=== PATIENT | male | born 1965 | race Two or more races ===

== ENCOUNTER 2024-01-13 21:53 | Emergency (ER) | payer SELFPAY ==
--- NOTE | 2024-01-13 22:12 | ED Physician Documentation ---
History of Present Illness - Stated complaint Stated Complaint: FEVER - Chief complaint Chief Complaint: Fever - History obtained from History obtained from: Patient, Family - Additonal information Additional information: 58-year-old gentleman with history of type 2 diabetes, coronary disease, and hypertension is visiting from [place]. For the last 2 nights he has had urinary frequency and dysuria as well as shaking chills and fever up to 104. He has no abdominal or flank pain. No runny nose or cough. PD PAST MEDICAL HISTORY - Present Medications Home Medications: Ambulatory Orders Medication Instructions Recorded Confirmed Ciprofloxacin HCl [Cipro] 500 mg PO BID #20 tablet 01/13/24 - Allergies Allergies/Adverse Reactions: Allergies Allergy/AdvReac Type Severity Reaction Status Date / Time NSAIDS (Non-Steroidal AdvReac Unknown Verified 01/13/24 22:10 Anti-Inflamma quinapril AdvReac Unknown Verified 01/13/24 22:11 PD ED PE NORMAL - Vitals Vital signs reviewed: Yes (Febrile and tachycardic) - General General: Alert and oriented X 3, No acute distress - HEENT HEENT: PERRL, EOMI - Neck Neck: Supple, no meningeal sign, No bony TTP - Cardiac Cardiac: RRR, No murmur - Respiratory Respiratory: No respiratory distress, Clear bilaterally - Abdomen Abdomen: Soft, Non tender - Back Back: No CVA TTP - Derm Derm: Normal color, Warm and dry - Neuro Neuro: Alert and oriented X 3, Normal speech Results - Vitals Vitals: Vital Signs - 24 hr 01/13/24 01/13/24 01/13/24 21:58 23:33 23:40 Temperature 38.9 C H 38.2 C H 38.2 C H Heart Rate 124 H 108 H Respiratory 19 20 Rate Blood Pressure 143/79 H 151/83 H O2 Saturation 93 98 01/13/24 01/14/24 23:52 00:35 Temperature 100.8 C H 37.8 C Heart Rate 103 H 97 Respiratory 18 18 Rate Blood Pressure 131/76 H 131/78 H O2 Saturation 99 99 Oxygen O2 Source Room air - Labs Labs: Laboratory Tests 01/13/24 01/13/24 01/13/24 22:00 22:21 22:21 WBC 11.0 H RBC 4.80 Hgb 13.4 L Hct 42.1 MCV 87.7 MCH 27.9 MCHC 31.8 L RDW 12.8 Plt Count 169 MPV 9.5 Neut # (Auto) 9.4 H Lymph # (Auto) 0.9 L [place] # (Auto) 0.6 Eos # (Auto) 0.0 Baso # (Auto) 0.0 Absolute Nucleated RBC 0.00 Nucleated RBC % 0.0 Sodium 134 L Potassium 3.5 Chloride 99 L Carbon Dioxide 26 Anion Gap 9.0 BUN 19 Creatinine 0.9 Estimated GFR (MDRD) 87 L Glucose 213 H Lactic Acid Calcium 9.2 Total Bilirubin 1.1 H AST 21 ALT 21 Alkaline Phosphatase 97 Total Protein 7.0 Albumin 4.1 Globulin 2.9 Albumin/Globulin Ratio 1.4 Urine Color ORANGE Urine Clarity HAZY Urine pH 5.5 Ur Specific [place] TNP Urine Protein 100 H Urine Glucose (UA) TNP Urine Ketones TNP Urine Occult Blood SMALL H Urine Nitrite POSITIVE H Urine Bilirubin NEGATIVE Urine Urobilinogen TNP Ur Leukocyte Esterase NEGATIVE Urine RBC 11-25 H Urine WBC >25 H Urine WBC Clumps PRESENT Ur Squamous Epith Cells RARE Squamous Urine Bacteria Few Urine Mucus Moderate Strands Ur Microscopic Review INDICATED Urine Culture Comments INDICATED 01/13/24 22:21 WBC RBC Hgb Hct MCV MCH MCHC RDW Plt Count MPV Neut # (Auto) Lymph # (Auto) [place] # (Auto) Eos # (Auto) Baso # (Auto) Absolute Nucleated RBC Nucleated RBC % Sodium Potassium Chloride Carbon Dioxide Anion Gap BUN Creatinine Estimated GFR (MDRD) Glucose Lactic Acid 1.6 Calcium Total Bilirubin AST ALT Alkaline Phosphatase Total Protein Albumin Globulin Albumin/Globulin Ratio Urine Color Urine Clarity Urine pH Ur Specific [place] Urine Protein Urine Glucose (UA) Urine Ketones Urine Occult Blood Urine Nitrite Urine Bilirubin Urine Urobilinogen Ur Leukocyte Esterase Urine RBC Urine WBC Urine WBC Clumps Ur Squamous Epith Cells Urine Bacteria Urine Mucus Ur Microscopic Review Urine Culture Comments PD Medical Decision Making - ED course ED course: 58-year-old gentleman with diabetes presents with symptoms of UTI and fever. He is tachycardic but not hypotensive. He appears nontoxic. Urinalysis was positive. His white count was mildly elevated at 11. His CMP was grossly unremarkable with a blood sugar of 213 with a normal lactate. On recheck at 10:55 PM he is still tachycardic at about 120 but appears well. I ordered R ocephin. Blood cultures are pending. I also ordered a second liter of IV fluids and some ibuprofen. I think he could probably go home, that said I would like to see his heart rate come down a bit and signed out to Dr. Koehler at 10 PM shift change pending recheck of vital signs with consideration for admission if not improved. Note made that he has a listed allergy to NSAIDs but his says he can take ibuprofen without ill effect. Departure - Departure Disposition: Home, Self Care Clinical Impression: Fever, Diabetes Condition: Good Instructions: ED UTI Pyelonephritis Male Prescriptions: Ciprofloxacin HCl [Cipro] 500 mg PO BID #20 tablet Comments: I sent your prescription electronically to the [facility] in [place]. There are both blood and urine cultures pending and we would call you for changes necessary or if that you need to return to the emergency department. Because of that please heed any phone calls you get from unknown numbers in the near future. Follow-up with your doctor and return home with consideration for referral to a urologist given the repeat UTIs and testicular issue you are having last year. Forms: PCP List Discharge Date/Time: 01/14/24 00:36
[2024-01-13 22:23] LABS: BILIRUBIN,URINE NEGATIVE (NEGATIVE); LEUKOCYTE ESTERASE, URINE NEGATIVE (NEGATIVE); NITRITE,URINE POSITIVE (NEGATIVE); OCCULT BLOOD,URINE SMALL (NEGATIVE); PH,URINE 5.5 PH (5.0-7.5); PROTEIN,URINE 100 mg/dL (NEGATIVE)
[2024-01-13] MEDS: SODIUM CHLORIDE 0.9% 1,000 ML IV STA ×2 (22:26→23:09)
[2024-01-13 22:32] LABS: CLARITY,URINE HAZY (CLEAR)
[2024-01-13 22:34] LABS: BASOPHILS % (AUTO) 0.2 %; HCT - HEMATOCRIT 42.1 % (42.0-52.0); HGB - HEMOGLOBIN 13.4 g/dL (14.0-18.0); LYMPHOCYTES # (AUTO) 0.9 10^3/uL (1.5-3.5); LYMPHOCYTES % (AUTO) 8.5 %; MEAN CORPUSCULAR HEMOGLOBIN 27.9 pg (27.0-31.0); MEAN CORPUSCULAR HGB CONC 31.8 g/dL (32.0-36.0); MEAN CORPUSCULAR VOLUME 87.7 fL (80.0-94.0); MEAN PLATELET VOLUME 9.5 fL (7.4-11.4); MONOCYTES # (AUTO) 0.6 10^3/uL (0.0-1.0); MONOCYTES % (AUTO) 5.6 %; NEUTROPHILS # (AUTO) 9.4 10^3/uL (1.5-6.6); NEUTROPHILS % (AUTO) 85.1 %; PLT - PLATELET COUNT 169 10^3/uL (130-450); RED CELL DISTRIBUTION WIDTH 12.8 % (12.0-15.0)
[2024-01-13 22:34] LABS: BACTERIA,URINE Few /HPF (None Seen); MUCUS,URINE Moderate Strands; SQUAMOUS EPITHELIAL CELL,UR RARE Squamous (<= Few); WBC CLUMPS,URINE PRESENT; WBC,URINE >25 /HPF (0-3)
[2024-01-13 22:48] LABS: ALBUMIN 4.1 g/dL (3.2-5.5); ALBUMIN/GLOBULIN RATIO 1.4 (1.0-2.2); BILIRUBIN,TOTAL 1.1 mg/dL (0.2-1.0); CALCIUM 9.2 mg/dL (8.5-10.3); CREATININE 0.9 mg/dL (0.6-1.3); POTASSIUM 3.5 mmol/L (3.5-4.5)
[2024-01-13] MEDS: cefTRIAXone 1 GM VIAL IVP STA (22:54)
[2024-01-13] MEDS: IBUPROFEN 800 MG TABLET PO STA (23:10)
[2024-01-13 23:58] VITALS: O2SAT 99
--- NOTE | 2024-01-14 00:03 | ED Physician Documentation ---
ED Addendum - Addendum Addendum: 01/14/24 00:48 I received signout/turnover of care on this patient from Dr. Gao; please see his note for complete H&P. In brief, tonight's tests reveal UTI, which is the suspected source of this patient's fever. Overall, the results of his blood tests are unremarkable (this includes a minimally elevated white blood cell count, normal lactate). At the time of signout, the patient is still tachycardic, febrile. He is receiving a second liter of IV fluid. After the second liter of fluid is infused, I reevaluated the patient. He is minimally tachycardic and reports feeling much improved. His heart rate is in the 100-110 range. He is still mildly febrile, but it is too early for more antipyretics (patient took acetaminophen at approximately 9 PM tonight, and he was given ibuprofen in the emergency department tonight). Given patient's report that he is feeling better, that his tachycardia has nearly resolved, and that his fever is now low-grade, it is safe and appropriate to discharge patient home at this point. We reviewed return precautions.
[2024-01-14 00:47] VITALS: BP 131/78
--- NOTE | 2024-01-18 08:34 | ED Physician Documentation ---
ED Addendum - Addendum Addendum: 01/18/24 08:28 The patient had been in for a fever. Discharged with concern for UTI on Cipro. The urine culture apparently is just back today which is 5 days after collection on his visit. It is showing an ESBL producing E. coli at 10-50,000 CFU per mL It is showing resistance to the quinolones of Cipro and Levaquin. Sensitive to nitrofurantoin though that would not necessarily be the best choice given his fever and such. However we can call him and see if he is doing better overall and perhaps add nitrofurantoin to his regimen. Otherwise it is sensitive to the imipenems. Resistance to the cephalosporins and penicillin. The culture is not tested against the cephamycins such as cefoxitin and cefotetan. In the commentary on the culture is that the ESBL's do not affect this category. As such we will change the patient from Cipro to cefoxitin and nitrofurantoin. Called to his pharmacy and nursing will check with him and advise of changes. 01/18/24 08:57 My thought process changed and actually called the patient and talked to he and his . He is having some discomfort with urination. Occasionally feels chilled but no vomiting no lightheadedness no diarrhea. I discussed options with him. They are visiting the area and returning to [place] tomorrow. I discussed the options of coming in to the ER again for IV dosing of antibiotic with subsequent follow-up back home with his primary. The option of nitrofurantoin orally though it does not have good tissue penetration and may not work as well if he is still fevers etc. However he does not sound septic nor kidney pain. As such the nitrofurantoin might work. The patient and his would rather opt for just changing to nitrofurantoin and following up at home tomorrow. They are encouraged to return to the ER later if feeling worse.
== END 2024-01-14 00:36 | disposition home or self-care (01) ==
LOC: ED 21:53
DX: N39.0 Urinary tract infection, site not specified (principal); B96.20 Unspecified Escherichia coli [E. coli] as the cause of diseases classified elsewhere; B96.89 Other specified bacterial agents as the cause of diseases classified elsewhere; E11.9 Type 2 diabetes mellitus without complications; I10 Essential (primary) hypertension
CPT/HCPCS: 36415; 80053; 81001; 83605; 85025; 87040; 87086; 96361; 96374; 99284; A9270; 81003; 87077; 87181